=== PATIENT | male | born 1960 | race Caucasian/White ===

== ENCOUNTER 2020-08-12 16:21 | Emergency (ER) | payer BC ==
[~2020-08-12] VITALS: Ht 177.8 cm; Wt 86.2 kg
--- NOTE | 2020-08-12 16:34 | NUR ---
SEEN AND EVALUATED BY MD WITH NEW ORDER OF XRAY
--- NOTE | 2020-08-12 16:34 | NUR ---
BIB CAME TO ER WITH C/O LEFT SHOULDER/ LEFT HAND PAIN S/P FELL OFF A WALL 5 FOOT HIGH. PT UNABLE TO MOVE LUE. AWAITING FOR MD MCCORMICK
[2020-08-12 17:11] VITALS: BP 134/88
== END 2020-08-12 17:12 | disposition home or self-care (01) ==
LOC: ER 16:24
DX: S49.82XA Other specified injuries of left shoulder and upper arm, initial encounter (principal); W17.89XA Other fall from one level to another, initial encounter; Y93.89 Activity, other specified; Y92.89 Other specified places as the place of occurrence of the external cause; Y99.8 Other external cause status
CPT/HCPCS: 73030-TC